=== PATIENT | male | born 1940 ===

== ENCOUNTER 2017-11-09 12:08 | Outpatient (CLI) | payer OTHER ==
[2017-11-10] MEDS ORDERED: GLIPIZIDE XL5 MG PO (09:17)
[2017-11-10] MEDS ORDERED: FAMOTIDINE20 MG PO (09:18)
[2017-11-10] MEDS ORDERED: METFORMIN HCL750 MG PO (09:18)
[2017-11-10] MEDS ORDERED: OMEPRAZOLE40 MG PO (09:18)
[2017-11-10] MEDS ORDERED: PRIMIDONE50 MG PO (09:18)
[2017-11-10] MEDS ORDERED: AMBIEN10 MG PO (09:19)
[2017-11-10] MEDS ORDERED: XANAX XR0.5 MG PO (09:19)
[2017-11-10] MEDS ORDERED: PRAVASTATIN SOD40 MG PO (09:20)
[2017-11-10] MEDS ORDERED: NORVASC5 MG PO (09:20)
[2017-11-10] MEDS ORDERED: XARELTO20 MG PO (09:20)
[2017-11-10] MEDS ORDERED: ADVAIR 100-501 EACH IH (09:21)
[2017-11-10] MEDS ORDERED: LASIX20 MG PO (09:21)
[2017-11-10] MEDS ORDERED: XOPENEX0.63 MG/3 IH (09:21)
[2017-11-10] MEDS ORDERED: PROSCAR5 MG PO (09:22)
[2017-11-10] MEDS ORDERED: TAMS0.4C PO (09:22)
== END 2017-11-09 12:21 | disposition home or self-care (01) ==
LOC: LAB 12:08
DX: D62 Acute posthemorrhagic anemia (principal)

== ENCOUNTER 2017-11-09 13:36 | Inpatient (IN) | payer OTHER ==
[~2017-11-09] VITALS: Ht 177.8 cm; Wt 106.6 kg
[2017-11-10] MEDS ORDERED: GLIPIZIDE XL5 MG PO (09:17)
[2017-11-10] MEDS ORDERED: METFORMIN HCL750 MG PO (09:18)
[2017-11-10] MEDS ORDERED: OMEPRAZOLE40 MG PO (09:18)
[2017-11-10] MEDS ORDERED: PRIMIDONE50 MG PO (09:18)
[2017-11-10] MEDS ORDERED: FAMOTIDINE20 MG PO (09:18)
[2017-11-10] MEDS ORDERED: AMBIEN10 MG PO (09:19)
[2017-11-10] MEDS ORDERED: XANAX XR0.5 MG PO (09:19)
[2017-11-10] MEDS ORDERED: NORVASC5 MG PO (09:20)
[2017-11-10] MEDS ORDERED: PRAVASTATIN SOD40 MG PO (09:20)
[2017-11-10] MEDS ORDERED: XARELTO20 MG PO (09:20)
[2017-11-10] MEDS ORDERED: XOPENEX0.63 MG/3 IH (09:21)
[2017-11-10] MEDS ORDERED: ADVAIR 100-501 EACH IH (09:21)
[2017-11-10] MEDS ORDERED: LASIX20 MG PO (09:21)
[2017-11-10] MEDS ORDERED: PROSCAR5 MG PO (09:22)
[2017-11-10] MEDS ORDERED: TAMS0.4C PO (09:22)
== END 2017-11-18 12:07 | disposition expired | DRG 713 ==
LOC: SURH 11-11 05:34 → O/R 11-11 05:34 → SURH 11-11 07:00 → MEDI 11-11 13:39 → ICU 11-13 22:14
PROVIDERS: Urology
PROC: 3E0F7GC Introduction of Other Therapeutic Substance into Respiratory Tract, Via Natural or Artificial Opening (ICD-10-PCS; 2017-11-11)
PROC: 0VT08ZZ Resection of Prostate, Via Natural or Artificial Opening Endoscopic (ICD-10-PCS; principal; 2017-11-11 07:00)
PROC: 4A033R1 Measurement of Arterial Saturation, Peripheral, Percutaneous Approach (ICD-10-PCS; 2017-11-13)
PROC: BB24Y0Z Computerized Tomography (CT Scan) of Bilateral Lungs using Other Contrast, Unenhanced and Enhanced (ICD-10-PCS; 2017-11-13)
PROC: 4A12X4Z Monitoring of Cardiac Electrical Activity, External Approach (ICD-10-PCS; 2017-11-13)
PROC: 5A1955Z Respiratory Ventilation, Greater than 96 Consecutive Hours (ICD-10-PCS; 2017-11-13)
PROC: 0BH17EZ Insertion of Endotracheal Airway into Trachea, Via Natural or Artificial Opening (ICD-10-PCS; 2017-11-13)
PROC: 06HM33Z Insertion of Infusion Device into Right Femoral Vein, Percutaneous Approach (ICD-10-PCS; 2017-11-14)
PROC: B246ZZZ Ultrasonography of Right and Left Heart (ICD-10-PCS; 2017-11-14)
DX: N40.1 Benign prostatic hyperplasia with lower urinary tract symptoms (principal); J95.821 Acute postprocedural respiratory failure; J69.0 Pneumonitis due to inhalation of food and vomit; A41.9 Sepsis, unspecified organism; R65.21 Severe sepsis with septic shock; I50.23 Acute on chronic systolic (congestive) heart failure; I21.4 Non-ST elevation (NSTEMI) myocardial infarction; J95.89 Other postprocedural complications and disorders of respiratory system, not elsewhere classified; N17.8 Other acute kidney failure; J44.1 Chronic obstructive pulmonary disease with (acute) exacerbation; K92.2 Gastrointestinal hemorrhage, unspecified; K91.841 Postprocedural hemorrhage of a digestive system organ or structure following other procedure; E87.4 Mixed disorder of acid-base balance; T81.4XXA Infection following a procedure, initial encounter; I97.131 Postprocedural heart failure following other surgery; B37.49 Other urogenital candidiasis; I97.191 Other postprocedural cardiac functional disturbances following other surgery; I97.89 Other postprocedural complications and disorders of the circulatory system, not elsewhere classified; I47.1 Supraventricular tachycardia; R33.8 Other retention of urine; I10 Essential (primary) hypertension; E11.9 Type 2 diabetes mellitus without complications; J44.9 Chronic obstructive pulmonary disease, unspecified; N99.0 Postprocedural (acute) (chronic) kidney failure; Z78.1 Physical restraint status; N99.89 Other postprocedural complications and disorders of genitourinary system; I48.0 Paroxysmal atrial fibrillation